=== PATIENT | male | born 1970 | race Caucasian/White ===

== ENCOUNTER 2017-06-05 09:25 | Day surgery (SDC) | payer BC ==
[~2017-06-05 09:25] MED LIST: LIDOCAINE HCL 1% MPF SOL ONE; PROPOFOL 500 MG/50 ML EMU IV ONE
[2017-06-05 11:39] VITALS: TEMP 97.3
[2017-06-05 12:02] VITALS: RESP 18
[2017-06-05 12:08] VITALS: BP 98/74; PULSE 70; O2SAT 97
== END 2017-06-05 12:30 | disposition home or self-care (01) ==
LOC: SURG 09:25
PROVIDERS: ATTEND Internal Medicine Gastroenterology
DX: K50.818 Crohn's disease of both small and large intestine with other complication (principal); R10.13 Epigastric pain; R10.31 Right lower quadrant pain; Z86.010 Personal history of colon polyps; K64.8 Other hemorrhoids; K31.5 Obstruction of duodenum; K29.80 Duodenitis without bleeding; K29.50 Unspecified chronic gastritis without bleeding
CPT/HCPCS: 43239; 45380; 99001; J2001; J2704 ×2